=== PATIENT | female | born 1990 ===

== ENCOUNTER 2017-12-07 16:46 | Inpatient (IN) | payer OTHER ==
[~2017-12-07] VITALS: Ht 170.2 cm; Wt 73.5 kg
[~2017-12-07 16:46] MED LIST: PRENATABS RX TA1 TAB; ULTRAM50 MG PO
== END 2017-12-09 14:25 | DRG 775 ==
LOC: LDR 16:46 → OB/GYN 16:46
PROC: 10D07Z8 Extraction of Products of Conception, Other, Via Natural or Artificial Opening (ICD-10-PCS; principal; 2017-12-07)
PROC: 0HQ9XZZ Repair Perineum Skin, External Approach (ICD-10-PCS; 2017-12-07)
PROC: 4A1HXCZ Monitoring of Products of Conception, Cardiac Rate, External Approach (ICD-10-PCS; 2017-12-07)
DX: O70.0 First degree perineal laceration during delivery (principal); Z37.0 Single live birth; Z3A.38 38 weeks gestation of pregnancy

== ENCOUNTER 2020-08-16 02:00 | Inpatient (IN) | payer OTHER ==
[~2020-08-16] VITALS: Ht 170.2 cm; Wt 73.0 kg
== END 2020-08-18 14:23 | disposition home or self-care (01) | DRG 807 ==
LOC: LDR 02:00 → OB/GYN 02:00
PROVIDERS: ADMIT Obstetrics & Gynecology; ATTEND Obstetrics & Gynecology
PROC: 10E0XZZ Delivery of Products of Conception, External Approach (ICD-10-PCS; principal; 2020-08-16)
PROC: 10907ZC Drainage of Amniotic Fluid, Therapeutic from Products of Conception, Via Natural or Artificial Opening (ICD-10-PCS; 2020-08-16)
PROC: 4A1HXFZ Monitoring of Products of Conception, Cardiac Rhythm, External Approach (ICD-10-PCS; 2020-08-16)
DX: O80 Encounter for full-term uncomplicated delivery (principal); Z37.0 Single live birth; Z3A.38 38 weeks gestation of pregnancy; Z20.822 Contact with and (suspected) exposure to COVID-19